=== PATIENT | male | born 1975 | race African-American/Black ===

== ENCOUNTER 2016-12-13 22:38 | Emergency (ER) | payer OTHER ==
[~2016-12-13 22:38] MED LIST: ALEVE220 M1 PO; BENZONATATE PO; EC-NAPROSYN500 MG PO; FLEXERIL10 MG PO; HYDROCODON-ACE1 EAC1 PO; KEFLEX500 M1 PO; MOBIC PO; NAPROSYN500 MG PO; NAPROXEN PO; NO MEDICATIONS; PEPCID AC20 MG PO; POTASSIUM OTC PO; SPECTAZOLE15 GM; SPECTAZOLE15 GM TOP; TYLOX 5-500 CA1 EACH PO; VOLTAREN75 MG PO; ZOFRANODT PO; ZYRTEC PO
== END 2016-12-14 02:21 | disposition home or self-care (01) ==
LOC: CED 22:38
DX: J01.10 Acute frontal sinusitis, unspecified (principal); F17.200 Nicotine dependence, unspecified, uncomplicated; Z79.899 Other long term (current) drug therapy
CPT/HCPCS: 99282